=== PATIENT | female | born 1960 | race Caucasian/White ===

== ENCOUNTER → 2016-11-01 | Outpatient (REF) | payer OTHER ==
[2016-11-01 13:11] LABS: FOLATE 16.8 NG/ML (>5.4)
== END | disposition home or self-care (01) ==
LOC: M LAB REF 12:04
PROVIDERS: ATTEND Internal Medicine
DX: D50.9 Iron deficiency anemia, unspecified (principal)

== ENCOUNTER → 2016-12-26 | Outpatient (CLI) | payer OTHER ==
[~2016-12-26] VITALS: Ht 157.5 cm; Wt 76.2 kg
[~2016-12-26] MED LIST: ACET50TAOT PO; ALEV220C2 PO; ASPI1TAB PO; CYCL5TA PO; FERR28TA PO; FISH1000 PO; IBUP600T26 PO; LEVOPOW21 PO; NS 1,000 ML IV SCH; PROPOFOL 200 MG/20 ML VIAL As Ordered ONE; TUMS500C PO; VITA400D3 PO; VITA500T3 PO
--- NOTE | 2016-12-26 14:32 | ROOR ---
Patient Name: Lea Palma Procedure Date: 12/26/2016 2:12 PM Date of : 1960 Age: 56 Room: [facility] Gender: Female Note Status: Finalized Procedure: Colonoscopy Indications: High risk colon cancer surveillance: Personal history of colonic polyps, Last colonoscopy: April 2013 Providers: Saqib SELF MD Referring MD: Danay GARG MD Requesting Provider: Medicines: Monitored Anesthesia Care Complications: No immediate complications. Procedure: Pre-Anesthesia Assessment: - The heart rate, respiratory rate, oxygen saturations, blood pressure, adequacy of pulmonary ventilation, and response to care were monitored throughout the procedure. The Colonoscope was introduced through the anus and advanced to the terminal ileum, with identification of the appendiceal orifice and IC valve. The colonoscopy was performed without difficulty. The patient tolerated the procedure well. The quality of the bowel preparation was good. Findings: (Exam: Complete, Prep: Good or Excellent.) The entire examined colon appeared normal on direct and retroflexion views. Impression: - The entire colon is normal on direct and retroflexion views. - No specimens collected. Recommendation: - Repeat colonoscopy in 5 years for surveillance based on personal history of previous adenomatous polyps. Saqib Self MD Saqib SELF MD 12/26/2016 2:32:18 PM This report has been signed electronically. Number of Addenda: 0 Note Initiated On: 12/26/2016 2:12 PM Estimated Blood Loss: Estimated blood loss: none.
[2016-12-26 15:00] VITALS: BP 134/74
== END ==
LOC: M OPP 11:59
PROVIDERS: ATTEND Internal Medicine Gastroenterology
DX: Z12.11 Encounter for screening for malignant neoplasm of colon (principal); Z86.010 Personal history of colon polyps; I49.9 Cardiac arrhythmia, unspecified; E07.9 Disorder of thyroid, unspecified; M54.9 Dorsalgia, unspecified; Z98.84 Bariatric surgery status; Z88.2 Allergy status to sulfonamides; Z88.8 Allergy status to other drugs, medicaments and biological substances; Z91.89 Other specified personal risk factors, not elsewhere classified; Z88.1 Allergy status to other antibiotic agents; Z79.82 Long term (current) use of aspirin; Z79.899 Other long term (current) drug therapy

== ENCOUNTER → 2017-11-07 | Outpatient (REF) | payer OTHER ==
[2017-11-07 14:14] LABS: FERRITIN 14 NG/ML (8-252)
[2017-11-07 15:46] LABS: FOLATE 19.2 NG/ML; VITAMIN B12 LEVEL 609 PG/ML
== END ==
LOC: M LAB REF 12:42
DX: D50.9 Iron deficiency anemia, unspecified (principal); Z98.84 Bariatric surgery status

== ENCOUNTER → 2019-02-12 | Outpatient (REF) | payer OTHER ==
[~2019-02-12] MED LIST changes: +ACET500T15 PO; -ACET50TAOT PO; -ASPI1TAB PO; +ASPI81TA26 PO; -CYCL5TA PO; +CYCL5TAB PO; +IBUP-1022 PO; -IBUP600T26 PO; -NS 1,000 ML IV SCH; -PROPOFOL 200 MG/20 ML VIAL As Ordered ONE; +VITA400D PO; -VITA400D3 PO
[2019-02-12 13:05] LABS: FOLATE 15.2 NG/ML (>5.4); VITAMIN B12 LEVEL > 2000 PG/ML (247-911)
== END ==
LOC: M LAB REF 12:30
PROVIDERS: ATTEND Internal Medicine
DX: D51.9 Vitamin B12 deficiency anemia, unspecified (principal)

== ENCOUNTER → 2020-08-03 | Outpatient (REF) | payer OTHER ==
[~2020-08-03] MED LIST changes: +CYAN500T8 PO; -VITA500T3 PO
[2020-08-03 12:07] LABS: FERRITIN 18 NG/ML (8-252)
[2020-08-03 12:15] LABS: VITAMIN B12 LEVEL 465 PG/ML (247-911)
== END ==
LOC: M LAB REF 11:20
PROVIDERS: ATTEND Internal Medicine
DX: Z98.84 Bariatric surgery status (principal)

== ENCOUNTER → 2021-04-07 | Outpatient (REF) | payer OTHER ==
[~2021-04-07] MED LIST changes: +CYAN500T14 PO; -CYAN500T8 PO
== END ==
LOC: M LAB REF 12:14
PROVIDERS: ATTEND Internal Medicine
DX: R73.03 Prediabetes (principal)

== ENCOUNTER → 2022-01-05 | Outpatient (REF) | payer OTHER ==
[2022-01-05 13:46] LABS: FOLATE 12.6 NG/ML; TOTAL 25(OH) VITAMIN D 18.4 NG/ML (30.0-100.0)
== END ==
LOC: M LAB REF 12:39
PROVIDERS: ATTEND Internal Medicine
DX: Z98.84 Bariatric surgery status (principal); E55.9 Vitamin D deficiency, unspecified

== ENCOUNTER → 2022-06-10 | Outpatient (CLI) | payer OTHER | LOC: M PLAIMG 12:25 | PROVIDERS: ATTEND Pain Medicine Interventional Pain Medicine | DX: M54.50 Low back pain, unspecified (principal) ==

== ENCOUNTER → 2022-12-06 | Outpatient (REF) | payer OTHER ==
[~2022-12-06] MED LIST changes: +ALEV220T22 PO; +LEVO137T2 PO; +METF500T13 PO; +OMEG10002 PO; +VIAC1CHW PO; +VITA100093 PO
== END ==
LOC: M LAB REF 12:12
PROVIDERS: ATTEND Internal Medicine
DX: R19.8 Other specified symptoms and signs involving the digestive system and abdomen (principal)

== ENCOUNTER → 2022-12-28 | Outpatient (CLI) | payer OTHER ==
[~2022-12-28] MED LIST changes: +ACET-653 PO; +ALKA10CA PO; +CALC600T57 PO; +CYAN2500 SL; +IRON65TA2 PO; +MECL1TAB31 PO; +MELO15TA28 PO; +PROA1AER2 IN; +TIZA10TA PO; +VITA100024 PO; +VITA500030 PO; +VITMTA PO
== END ==
LOC: M LABSMTC 10:19
PROVIDERS: ATTEND Anesthesiology
DX: Z01.818 Encounter for other preprocedural examination (principal); Z11.52 Encounter for screening for COVID-19

== ENCOUNTER → 2023-01-02 | Day surgery (SDC) | payer OTHER ==
[~2023-01-02] VITALS: Ht 157.5 cm; Wt 81.8 kg
[~2023-01-02] MED LIST changes: +LIDOCAINE 2% 100MG/5ML SDV (FOR ANES.) As Ordered ONE; +NS 1,000 ML IV ONE; +ONDANSETRON 4MG 2ML VIAL As Ordered ONE; +propofoL 500 MG/50 ML VIAL As Ordered ONE
[2023-01-02 08:20] VITALS: BP 145/73
== END | disposition home or self-care (01) ==
LOC: M OPP 06:41
PROVIDERS: ATTEND Internal Medicine Gastroenterology
DX: Z12.11 Encounter for screening for malignant neoplasm of colon (principal); Z86.010 Personal history of colon polyps; K74.60 Unspecified cirrhosis of liver; E16.2 Hypoglycemia, unspecified; I34.9 Nonrheumatic mitral valve disorder, unspecified; J44.9 Chronic obstructive pulmonary disease, unspecified; Z79.1 Long term (current) use of non-steroidal anti-inflammatories (NSAID); Z79.51 Long term (current) use of inhaled steroids; Z79.84 Long term (current) use of oral hypoglycemic drugs; Z79.890 Hormone replacement therapy; Z79.891 Long term (current) use of opiate analgesic; Z79.899 Other long term (current) drug therapy; Z88.2 Allergy status to sulfonamides; Z88.1 Allergy status to other antibiotic agents; Z91.018 Allergy to other foods; Z91.048 Other nonmedicinal substance allergy status; Z80.3 Family history of malignant neoplasm of breast; Z98.84 Bariatric surgery status; Z87.891 Personal history of nicotine dependence
CPT/HCPCS: 45378; J2405

== ENCOUNTER → 2023-01-09 | Outpatient (REF) | payer OTHER ==
[~2023-01-09] MED LIST changes: -LIDOCAINE 2% 100MG/5ML SDV (FOR ANES.) As Ordered ONE; -NS 1,000 ML IV ONE; -ONDANSETRON 4MG 2ML VIAL As Ordered ONE; -propofoL 500 MG/50 ML VIAL As Ordered ONE
[2023-01-09 13:02] LABS: FOLATE > 24.0 NG/ML (>5.4); VITAMIN B12 LEVEL 801 PG/ML (211-911)
== END ==
LOC: M LAB REF 12:16
PROVIDERS: ATTEND Internal Medicine
DX: Z98.84 Bariatric surgery status (principal)

== ENCOUNTER → 2023-04-06 | Outpatient (REF) | payer OTHER | LOC: M LAB REF 12:05 | PROVIDERS: ATTEND Internal Medicine | DX: Z98.84 Bariatric surgery status (principal) ==

== ENCOUNTER → 2024-01-09 | Outpatient (REF) | payer OTHER ==
[~2024-01-09] MED LIST changes: +MECL-209 PO; -MECL1TAB31 PO
[2024-01-09 14:43] LABS: FOLATE 20.9 NG/ML (>5.4)
[2024-01-09 14:44] LABS: FERRITIN 35.6 NG/ML (7.3-270.7)
== END ==
LOC: M LAB REF 12:23
PROVIDERS: ATTEND Internal Medicine
DX: Z98.84 Bariatric surgery status (principal)

== ENCOUNTER → 2024-01-26 | Outpatient (CLI) | payer OTHER ==
[~2024-01-26] MED LIST changes: +PROHANCE 279.3MG/ML 15ML VIAL ONE
== END ==
LOC: M PLAIMG 12:53
PROVIDERS: ATTEND Internal Medicine
DX: H54.7 Unspecified visual loss (principal)

== ENCOUNTER → 2025-05-12 | Outpatient (REF) | payer OTHER ==
[~2025-05-12] MED LIST changes: -CYCL5TAB PO; +CYCL5TAB4 PO; -PROHANCE 279.3MG/ML 15ML VIAL ONE
[2025-05-12 13:30] LABS: VITAMIN B12 LEVEL 788.0 PG/ML (211-911)
== END ==
LOC: M LAB REF 11:40
PROVIDERS: ATTEND Internal Medicine
DX: D50.9 Iron deficiency anemia, unspecified (principal); K76.0 Fatty (change of) liver, not elsewhere classified

== ENCOUNTER → 2025-09-24 | Outpatient (REF) | payer OTHER ==
[~2025-09-24] MED LIST changes: -IBUP-1022 PO; +IBUP600T42 PO; -VITA100024 PO; +VITA100051 PO
[2025-09-30 11:42] LABS: HPV APTIMA Not Detected (Not Detected)
== END ==
LOC: M SFHCWAGY 09:57
PROVIDERS: ATTEND Nurse Practitioner Family
DX: Z12.72 Encounter for screening for malignant neoplasm of vagina (principal); Z11.51 Encounter for screening for human papillomavirus (HPV)
CPT/HCPCS: 87624; G0123